=== PATIENT | male | born 1955 | race Caucasian/White ===

== ENCOUNTER 2024-09-15 10:42 | Emergency (ER) | payer MEDICARE, BC, SELFPAY ==
[2024-09-15 10:57] VITALS: BP 104/64
[2024-09-15 11:42] LABS: % Basophils 0.7 % (0-2); % Eosinophils 1.2 % (0-6); % Immature Granulocytes 0.3 % (0-0.5); % Lymphocytes 31.9 % (20.5-51.1); % Monocytes 11.5 % (1.7-9.3); % Neutrophils 54.4 % (42.2-75.2); Absolute Eosinophils 0.1 10^3/uL (0-0.7); Absolute Lymphocytes 1.9 10^3/uL (1.2-3.4); Absolute Monocytes 0.7 10^3/uL (0.1-0.6); Absolute Neutrophils 3.2 10^3/uL (1.4-6.5); Hematocrit 31.1 % (39.0-52.0); Hemoglobin 10.4 g/dL (13.0-18.0); Mean Corp Hgb Conc. 33.4 g/dL (33.0-37.0); Mean Corpuscular Hgb 30.1 pg (27.0-31.0); Mean Corpuscular Volume 90.1 fL (80.0-94.0); Mean Platelet Volume 10.1 fL (7.4-10.4); Nucleated Red Blood Cells % 0 % (-); Platelet Count 204 10^3/uL (130-400); Red Blood Cell Count 3.45 10^6/uL (4.70-6.10); Red Cell Dist. Width 14.5 % (11.5-14.5); White Blood Cell Count 5.8 10^3/uL (4.8-10.8)
[2024-09-15 12:02] LABS: ALT (SGPT) 17 U/L (0-50); AST (SGOT) 17 U/L (17-59); Albumin 4.1 g/dl (3.5-5.0); Alkaline Phosphatase 74 U/L (38-126); Blood Urea Nitrogen 55 mg/dl (9-20); Calcium 8.8 mg/dl (8.4-10.2); Carbon Dioxide 22 mmol/L (22-30); Chloride 109 mmol/L (98-107); Glucose 84 mg/dl (70-99); Potassium 5.3 mmol/L (3.5-5.1); Sodium 140 mmol/L (135-145); Total Bilirubin 0.7 mg/dl (0.2-1.3); Total Protein 6.9 g/dl (6.3-8.2); eGFR 20.96
[2024-09-15 12:07] LABS: Troponin I < 0.012 ng/ml
--- NOTE | 2024-09-15 13:42 | ED.GENMED ---
History of Present Illness
General
Chief Complaint: Chest Pain
Source: patient and long term ([place] nurse )
Exam Limitations: none
Time Seen by Provider: 09/15/24 13:34
Nursing documentation reviewed up to this point in time: agreed with
History of Present Illness
History of Present Illness:
69-year-old male from [facility] rehab with pmh of CKD, IDDM, CAD stents trach collar presents to the ER for chest pain. He reports pain has been off and on for several days he denies any associated shortness of breath.
He denies any injury. Denies any recent fever chills cough. He has a chronic trach collar with history of RSV. Past medical history includes COPD A-fib chronic kidney disease stage IV gastroparesis, reflux. He tells me this does not feel like
reflux.
Nurse at [facility] reports pt was given 2 SL NTG . Patient however reports this does not feel like his cardiac pain years ago.
As per nurse at [facility] nursing [facility] pt's last labs 09/08 : BUN 49.10 creatinine was 3.04 patient does have a history of chronic kidney disease.
Review of Systems
Review of Systems
Allergies reviewed?: Yes
All Other Systems: ROS reviewed and negative except as documented in HPI and ROS
Constitutional: Reports no symptoms; Denies fever
Respiratory: Denies trouble breathing
Cardiac: Reports chest pain; Denies diaphoresis, palpitations or syncope
ABD/GI: Reports no symptoms
: Reports no symptoms
Musculoskeletal: Reports no symptoms
Skin: Reports no symptoms
Neurological: Reports no symptoms
Psychiatric: Reports no symptoms
Phy Exam
General Physical Exam
General Presentation: no apparent distress
General age: appears stated age
General Skin: warm and dry
General Habitus: normal
General Mental: alert
General Hydration: appears well hydrated
Cardiovascular Exam
Cardiovascular Exam: regular rate/rhythm, no murmur and normal peripheral pulses
Pulmonary Exam
Pulmonary Exam: lungs clear and no respiratory distress
Neurological Exam
Neurological Exam: alert and oriented x3
Musculoskeletal Exam
Musculoskeletal Exam: full ROM
Skin Exam
Skin Exam: normal color and warm/dry
Psychiatric Exam
Psychiatric Exam: normal mood/affect
Scores
Heart Score for Chest Pain Patients
STEMI patient?: Not applicable
Course
Orders/Labs/Results
Orders:
Orders
09/15/24 10:50
Electrocardiogram (*1) Urgent
Reason for Study: Chest Pain
EKG- Treatment ONCE
09/15/24 11:19
CMP [Comprehensive Metabolic Panel] Urgent
Complete Blood Count/With Diff Urgent
Troponin I Urgent
09/15/24 13:50
Chest [CR Chest - 2 Views ] Urgent
Comment:
Reason For Exam: cp
09/15/24 14:53
Electrocardiogram (*1) Stat
Reason for Study: Other
Other Reason for Exam: chest pain
EKG- Treatment ONCE
09/15/24 15:52
Troponin I Urgent
Abnormal Lab Results
09/15/24
11:19
RBC 3.45 L 10^6/uL
(4.70-6.10)
Hgb 10.4 L g/dL
(13.0-18.0)
Hct 31.1 L %
(39.0-52.0)
Absolute Monos (auto) 0.7 H 10^3/uL
(0.1-0.6)
Monocytes % 11.5 H %
(1.7-9.3)
Potassium 5.3 H mmol/L
(3.5-5.1)
Chloride 109 H mmol/L
(98-107)
BUN 55 H mg/dl
(9-20)
Creatinine 3.1 H mg/dL
(0.7-1.3)
09/15/24 11:19
09/15/24 11:19
Vital Signs
Initial and Last Documented VS:
Initial Vital Signs
Temp Pulse Resp BP Pulse Ox
97.7 F 54 16 104/64 99
09/15/24 10:57 09/15/24 10:57 09/15/24 10:57 09/15/24 10:57 09/15/24 10:57
Last Documented Vital Signs
Temp Pulse Resp BP Pulse Ox
97.7 F 60 12 141/66 99
09/15/24 10:57 09/15/24 17:00 09/15/24 17:00 09/15/24 17:00 09/15/24 17:00
MDM/Problems Addressed
Differential Diagnosis Includes:
Not limited to muscular chest pain less likely unstable angina
MDM/Problems Addressed:
Patient is document is a 69-year-old male sent by nursing facility, he is presently getting rehab. He was sent for evaluation of chest pain. He has had this for the past several days feeling better here in the ER. Denies any recent fever or
chills. He has a chronic trach from previous RSV infection. He presents awake alert no acute distress lungs are clear chest nontender afebrile normal white count stable hemoglobin. Patient does have elevated BUN/creatinine he has chronic kidney
disease as per long term staff.
Patient has been nontoxic and asymptomatic here with 2 negative cardiac troponins
No acute findings on EKG and unremarkable chest x-ray stable for discharge back to her skilled rehab nursing facility.
*Radiology
Radiology exam reviewed: radiology read reviewed
*Pulse Oximetry
Patient hypoxic: no
*EKG
Interpreted by ED Provider?: Yes
Comparison EKG: no comparison EKG present
Heart Rate: 54
Rate: bradycardiac
Rhythm: sinus
Ischemia: non-specific ST changes
*Critical Care Note
Total Time (30-74mins, 75-104mins- exclusive of procedures): Not Applicable
ED Attending Note
-
Portions of this chart may have been created with voice recognition software.� Occasional wrong word or��sound alike� substitutions may have occurred due to the inherent limitations of voice recognition software.
Discharge Plan
Departure
Patient Disposition: Group Home/SNF
Date of Disposition: 09/15/24
Time of Disposition: 17:47
Patient with high blood pressure during this ER visit?: Yes
Condition: Fair
Covid-19: Not Applicable
Discharge Problem:
Chest pain
Instructions: Chest Pain DCA Follow Up
Referrals:
Sher Mathis DO [Family Provider] -
Ekaterina Daniels MD [Active] -
Activity Restrictions/Additional Instructions:
Patient was monitored here had no symptoms and had 2 negative cardiac troponins. Patient to be eval by cardiology. Patient does have a history of chronic kidney disease he should be evaluated by his coding director/or nephrology above.
Return if any worsening of symptoms
Interventions
Interventions:
*Risk Screen - Suicide Last Done: 09/15/24 11:01
*General Assessment Last Done: 09/15/24 16:37
*Neglect/Abuse Screening Last Done: 09/15/24 11:01
*ED- Fall Risk Assessment Last Done: 09/15/24 16:14
*ED COVID-19 Vaccine History Last Done: 09/15/24 11:01
*Nursing Disposition Last Done: 09/15/24 19:58
ED- Cardiac Assessment Last Done: 09/15/24 14:53
Discharge Date and Time
Discharge Date/Time: 09/15/24 19:59
Print Language: WELSH
[2024-09-15 14:51] VITALS: BP 144/70
[2024-09-15 15:00] VITALS: BP 149/68
[2024-09-15 16:00] VITALS: BP 131/66
[2024-09-15 16:35] LABS: Troponin I < 0.012 ng/ml
[2024-09-15 17:00] VITALS: BP 141/66
[2024-09-15 17:22] VITALS: BMI 24.8
--- NOTE | 2024-09-15 18:27 | CM ---
CM spoke with patient and stated that will arrange a wheelchair van. Patient is agreeable to wheelchair van transport.
== END 2024-09-15 19:59 ==
LOC: EMR 10:42
PROVIDERS: Emergency Medicine; Nurse Practitioner; EMERGENCY PHYSICIAN Emergency Medicine; FAMILY PHYSICIAN Internal Medicine
DX: R07.89 Other chest pain (principal); E11.22 Type 2 diabetes mellitus with diabetic chronic kidney disease; N18.4 Chronic kidney disease, stage 4 (severe); K21.9 Gastro-esophageal reflux disease without esophagitis; E11.43 Type 2 diabetes mellitus with diabetic autonomic (poly)neuropathy; I12.9 Hypertensive chronic kidney disease with stage 1 through stage 4 chronic kidney disease, or unspecified chronic kidney disease; N18.9 Chronic kidney disease, unspecified; J44.9 Chronic obstructive pulmonary disease, unspecified; I25.10 Atherosclerotic heart disease of native coronary artery without angina pectoris; K31.84 Gastroparesis; Z95.5 Presence of coronary angioplasty implant and graft; Z93.0 Tracheostomy status; Z79.4 Long term (current) use of insulin; Z88.8 Allergy status to other drugs, medicaments and biological substances
CPT/HCPCS: 99284; 71046; 80053; 84484; 85025; 93005